=== PATIENT | male | born 1955 | race Caucasian/White ===

== ENCOUNTER 2022-10-14 12:23 | Inpatient (IN) | payer MEDICARE, MEDICAID, SELFPAY ==
[2022-10-14] VITALS (22 sets, daily range): BP systolic 77–141; BP diastolic 46–115; PULSE 46–109; RESP 16–29; TEMP 36.6; O2SAT 89–100; BMI 35.4
--- NOTE | 2022-10-14 12:24 | XRR_ITS ---
PROCEDURE INFORMATION: Exam: XR Chest Exam date and time: 10/14/2022 4:04 PM Age: 66 years old Clinical indication: Pain; Angina pectoris; Additional info: Chest pain TECHNIQUE: Imaging protocol: Radiologic exam of the chest. Views: 1 view. COMPARISON: No relevant prior studies available. FINDINGS: Tubes, catheters and devices: There is a right-sided shunt catheter seen coursing down the right lateral neck, right chest wall and right hemiabdomen. Lungs: The lungs are hypoinflated with elevated right hemidiaphragm and mild right basilar atelectasis or infiltrate. Pleural spaces: Unremarkable. No pleural effusion. No pneumothorax. Heart/Mediastinum: Unremarkable. No cardiomegaly. Bones/joints: Unremarkable. XR/XR chest 1V portable [id number] IMPRESSION: Hypoinflation of the lungs with mild right basilar atelectasis or infiltrate. Correlate for pulmonary infection.
--- NOTE | 2022-10-14 12:25 | ECG_ITS ---
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 Measurements Intervals [place] Rate: 106 P: 55 KS: 197 QRS: 4 QRSD: 126 T: 147 QT: 330 QTc: 440 Interpretive Statements SINUS TACHYCARDIA LATERAL MYOCARDIAL INFARCTION , OF INDETERMINATE AGE [40+ ms Q WAVE AND/OR ST/T ABNORMALITY IN I/aVL/V5/V6] ACUTE [place] Compared to ECG 09/27/2015 12:39:12 Myocardial infarct finding now present Sinus rhythm no longer present Electronically Signed On 10-14-2022 14:40:42 CDT by Danielito Kennedy M.D. [id number]
--- NOTE | 2022-10-14 12:25 | XACV_ITS ---
Ht: 160 cm Wt: 91 kg BSA: 2.05 m2 Gender: Male : 1955 Any Known Allergies: No known allergies Exam Priority: Routine Procedure(s): Procedure Description: Diagnostic procedure Procedure Description: PCI procedure Procedure Description: PTCA Procedure Description: Coronary Thrombectomy Procedure Description: Miscellaneous Procedure Description: ACT Procedure Description: Coronary Angiography Diagnostic Cath Status: Emergency Diagnostic Findings * INDICATION: 66 year old male with past medical history of hypertension, leukemia and CKD presented to urgent care with chest discomfort radiating to both arms. According to patient pain started yesterday almost 24 hours ago. Now very minimal discomfort. EKG shows ST elevations in inferior leads with q waves. * Proximal Left Anterior Descending: total occlusion, MADELINE: 0 flow. Weak collaterals seen from right system. * Left Main: severe 90% stenosis, MADELINE: 3 flow. * Proximal Right Coronary Artery: total occlusion, MADELINE: 0 flow. * Mid Circumflex: subtotal occlusion, MADELINE: 1 flow. * Ramus: obstructive 70% stenosis, MADELINE: 3 flow. * Coronary angiography shows right dominance. PCI Status: Emergency PCI Indication: STEMI - Stable (> 12 hrs Sx) Interventional Findings * PROCEDURE DETAIL: We engaged RCA with JR4 guide catheter. IV heparin was administered to maintain anticoagulation. 0.014 run-through guidewire was used to cross the totally occluded RCA. We predilated RCA with 2.5 x 12 mm semicompliant balloon. Several inflations were performed. Very heavy thrombus burden was noted throughout the vessel. We then proceeded with mechanical thrombectomy with penumbra CAT Rx. Thrombus was removed however flow could not be restored. As patient was chest pain-free by this time and likely inferior wall had already infarcted, we proceeded with medical therapy.. * Proximal Right Coronary Artery: 100% stenosis treated with a AB TREK 2.50X12 RX BALLOON. 0% residual stenosis, MADELINE: 0 flow. Conclusions 1. Total thrombotic occlusion of 2. proximal RCA. S/p unsuccessful revascularization attempt with balloon angioplasty and mechanical thrombectomy. Decision made to medically treat him as patient currently chest pain-free and chest pain symptoms are over 24 hours.. 3. 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 I had a detailed discussion with family. Patient's prognosis is very guarded. They understand this and will inform us shortly for patient to be transferred to tertiary care center. 4. Proximal Right Coronary Artery was treated with a Balloon. Recommendations * Dual antiplatelet therapy with aspirin and plavix. * We will resume heparin gtt after sheath removal. * Transfer to ICU. * Patient's family deciding if want to pursue medical therapy/hospice vs tertiary care transfer. Diagnostic RX Recommendation: PCI w/o planned CABG Anticoagulation: Heparin Pressures Phase:Rest AO : 67 / 54 ( 61 ) @ 2:00:00 PM 70 / 51 ( 61 ) @ 2:10:00 PM Clinical Evaluation EBL: 5mL-10mL Procedural Details Procedure Consent Obtained. Pre-Procedure Time Out. Identified patient by full name and date of as verbalized by the patient/guarantor. Does the consent match the physician's order: N/A Emergent; Informed Consent not obtained due to time critical life threat. Accurate & Complete Informed Consent: N/A Emergent; Informed Consent not obtained due to time critical life threat. Inpatient/Outpatient History & Physical on Chart: N/A Emergent; Informed Consent not obtained due to time critical life threat. If H&P is completed, is and addenduem needed: N/A Emergent; Informed Consent not obtained due to time critical life threat; If yes, is the addendum complete: N/A Emergent; Informed Consent not obtained due to time critical life threat. Visualize and Verify Site with Patient/Guarantor: N/A. Relevant Radiology Images available: N/A. The risks, benefits, and alternatives of sedation and/or procedure were discussed by physician. The patient agrees to continue. Procedure started. [facility] Clinical Fraility Score: 3: Managing Well. Digital Asset Coordinator Indications: ACS <= 24 hours. Chest Pain Symptom Assessment: Typical Angina Symptoms. Cardiovascular Instability: Yes, if yes, Persistant Ischemic Symptoms. Correct patient, site and procedure confirmed by cath team. Current diagnosis: STEMI. PERRLA. Strong, equal hand etiquette teacher bilaterally. Lungs clear x 5 lobes. IV Site on Arrival: 18 gauge in the right anticubital. IV Fluids: 0.9% NaCl at KVO. 0 mL infused prior to manufacturing laborer. Pre Procedural Pulses: bilateral radial was 3+. Oxygen started at 2liters/min via nasal canula. right groin was prepped with chloroprep then draped in the usual sterile fashion. right radial was prepped with chloroprep then draped in the usual sterile fashion. Physician notified. Baseline sample Acquired. HR: 107 BPM. Patient's family unavailable. Equipment: 6F - Radial. Cardiac Cath Pack. ACIST Manifold Kit Model BT 2000. Heparinized Saline (2 units/mL), 1000 mL bag. Physician arrived. Physician scrubbed in. Immediate Pre-Procedure Time Out. Correct Patient: N/A Emergent; Informed Consent not obtained due to time critical life threat; Correct Procedure: N/A Emergent; Informed Consent not obtained due to time critical life threat; Correct Site: N/A Emergent; Informed Consent not obtained due to time critical life threat; Correct Patient Position: N/A Emergent; Informed Consent not obtained due to time critical life threat; Correct Supplies: N/A Emergent; Informed Consent not obtained due to time critical life threat; Dried Flammable Prep: N/A Emergent; Informed Consent not obtained due to time critical life threat; Blood Products Available: N/A Emergent; Informed Consent not obtained due to time critical life threat;. Lidocaine 1% infiltrated to the right radial. Arterial access obtained. 6 tanzanian JR 4 guide catheter was inserted over the exchange J wire. Runthrough guidewire was advanced through the guide catheter to lesion in the prox RCA. PCI Indication : Immediate PCI for STEMI. Inflation number : 1 A AB TREK 2.50X12 RX BALLOON was prepped and advanced across the Prox RCA , then inflated to 10 BRISEIDA for 0:11 seconds. Inflation number: 2 The AB TREK 2.50X12 RX BALLOON was reinflated across the Prox RCA, to 10 BRISEIDA for 0:010 seconds. Balloon out. Penumbra Aspiration catheter in OTW. Aspiration of the RCA performed. Penumbra Aspiration catheter out OTW. Penumbra Aspiration catheter in OTW. Aspiration of the RCA performed. Penumbra Aspiration catheter out OTW. Wire out. Results checked. Guide catheter out over the exchange J wire. A 5 tanzanian TIG catheter in over the exchange J wire. Multiple views taken of left coronary artery. Catheter removed over the exchange J wire. AP pads placed on the patient. ACT drawn. Results 295 seconds. Therapeutic limits - pre-heparin administration 90-150 seconds and monitoring heparin during a vascular procedure >250 seconds. Flushing the sheath with heparinzed saline periodically to maintain patency. Dr. Kennedy scrubbed out to update the family. Dr. Kennedy back. Will stop procedure. A TR Band was successful obtaining hemostatsis at the Right Radial artery insertion site. TR band placed. Hemostasis obtained. Post Procedure: Pulses reassessed and unchanged. PERRLA. Strong, equal hand etiquette teacher bilaterally. No VTE prophylaxis required. Medication's Wasted: Lidocaine 1% = 4 mL. Medication's Wasted: Heparin = 1000 units. Medication's Wasted: Other = Fentanyl 50 mcg. Total IV fluids: 130 mL. Complications: none. Estimated blood loss: 5mL-10mL. Post-op diagnosis: Totally occluded RCA s/p PTCA with mechanical thrombectomy. Unsuccessful revasculartzation. Severe multivesssel CAD. Responsiveness - Normal response to verbal stimuli; alert and oriented, PERRLA. Airway - Unaffected, no intervention required; spontaneous ventilation. Circulation: W/N/L, pulses unchanged. Nausea/Vomiting: No. Procedure completed. Patient transferred by bed to ICU. Vital chart was stopped. Access Site Site: Right Radial artery Sheath Size: 6 Fr Hemostasis Method: TR Band Hemostasis Success: Successful Procedure Medications Start: 12:44 PM Stop: 12:44 PM Medication: Versed Amount: 1 mg Route: I.V. Start: 12:44 PM Stop: 12:44 PM Medication: Fentanyl Amount: 50 mcg Route: I.V. Start: 12:46 PM Stop: 12:46 PM Medication: Heparin Amount: 5000 units Route: I.V. Start: 12:46 PM Stop: 12:46 PM Medication: Versed Amount: 1 mg Route: I.V. I, the attending physician, have reviewed and verified all procedure medications. Yes, all medications given per verbal order History/Risk Factors Hypertension: No Dyslipidemia: No Peripheral Arterial Disease (PAD): No Myocardial Infarction (WA): Yes Obesity: No Renal Disease: No Prior Interventions PCI: No CABG: No Valve Surgery: No Report Signatures Finalized by Danielito Kennedy MD on 10/26/2022 05:55 PM
[2022-10-14] MEDS: heparin 5,000 unit/mL INJ 1 mL 4000 UNIT IVP (12:29)
[2022-10-14] MEDS: clopidogrel 300 mg Tablet 600 MG PO (12:31)
--- NOTE | 2022-10-14 12:31 | PM.HP ---
Providers/Chief Complaint Admitting Physician: Danielito Kennedy MD/ Interventional Cardiology Primary Care Provider: Alonzo Del Real Jr, MD Chief Complaint: STEMI History of Present Illness Hudson Colby is a 66 year old male with past medical history of hypertension, leukemia and CKD presented to urgent care with chest discomfort radiating to both arms. According to patient pain started yesterday almost 24 hours ago. Now very minimal discomfort. EKG shows ST elevations in inferior leads with q waves Review of Systems General: Reports: 10 or more systems reviewed and unremarkable except in HPI and below Const: Denies: fever(s), chills or fatigue ENMT: Denies: throat pain, ear or mastoid pain, nasal congestion or sinus pain Card: Reports: chest pain; Denies: palpitations or swelling of feet/ankles Resp: Reports: dyspnea; Denies: productive cough GI: Reports: nausea; Denies: abdominal pain, vomiting or diarrhea : Denies: flank pain Musc: Denies: back pain or extremity swelling Skin/Breast: Denies: rash Neuro: Denies: headache(s), numbness in extremities or weakness in extremities Medications/Allergies Home Medications Medication Instructions Recorded Confirmed Last Taken Type alprazolam 0.5 mg tablet (Xanax) 0.5 mg PO DAILY 10/14/22 10/14/22 Unknown History ascorbic acid (vitamin C) 1,000 mg 1,000 mg PO Q12H 10/14/22 10/14/22 Unknown History tablet,extended release diltiazem HCl 30 mg tablet 30 mg PO ONCE 10/14/22 10/14/22 Unknown History (Cardizem) duloxetine 30 mg capsule,delayed 60 mg PO DAILY 10/14/22 10/14/22 Unknown History release (Cymbalta) duloxetine 60 mg capsule,delayed 90 mg PO DAILY 10/14/22 10/14/22 Unknown History release (Cymbalta) lisinopril 10 mg tablet 10 mg PO DAILY 10/14/22 10/14/22 Unknown History montelukast 10 mg tablet 10 mg PO DAILY 10/14/22 10/14/22 Unknown History multivitamin (Daily Multi-Vitamin 1 tab PO DAILY 10/14/22 10/14/22 Unknown History tablet) Allergies Allergy/AdvReac Type Severity Reaction Status Date / Time No Known Allergies Allergy Verified 10/14/22 12:32 PFSH Acute PFSH: Medical History Chronic kidney disease CML (chronic myelocytic leukemia) Vitals/I&O/Wt Last Vital Signs Temp 97.8 F 10/14/22 12:28 Pulse 109 H 10/14/22 12:28 Resp 18 10/14/22 12:28 BP 134/93 10/14/22 12:28 Pulse Ox 95 10/14/22 12:28 O2 Del Method Room Air 10/14/22 12:28 Weight last 48 hrs Weight 200 lb Physical Exam Narrative: GENERAL: Patient is alert, awake and oriented x3. [] NECK: No jugular vein distension. [] HEENT: No cyanosis. No icterus. No pallor. [] HEART: Regular S1 and S2. [] LUNGS:Mild crackles. [] CENTRAL NERVOUS SYSTEM: Grossly nonfocal. [] EXTREMITIES: Lower extremities with 1+ edema bilaterally. Data 10/14/22 12:30 10/14/22 12:30 A&P Assessment and plan (1) ST elevation (STEMI) myocardial infarction: (2) CML (chronic myelocytic leukemia): (3) Chronic kidney disease: Plan Patient has presented late with ST elevation SD. Chest pain is very minimal. However, given minimal residual pain, we will proceed with coronary angiogram with possible percutaneous coronary intervention. Patient given aspirin and plavix. We will continue with it. Heparin bolus given We will obtain echocardiogram We will consult medicine team to manage medical issues. Attestations Medical Necessity Statement*: Care expected to cross 2 midnights. Patient has presented late with ST elevation SD. We will perform coronary angiogram with possible percutaneous coronary intervention Coding Level of Care Code Acute Code for [facility] Diagnoses ST elevation (STEMI) myocardial infarction I21.3 CML (chronic myelocytic leukemia) C92.10 Chronic kidney disease N18.9
--- NOTE | 2022-10-14 12:43 | ED_ITS ---
HPI - Chest Pain General: Chief Complaint: Arrhythmia/Palpitations Stated Complaint: STEMI Time Seen by Provider: 10/14/22 12:24 Source: patient Mode of arrival: EMS History of Present Illness: 66-year-old male presented to the urgent care clinic with chest pain is a history of chronic kidney disease and CML which is being monitored. He has no known history of coronary disease chest pain began last night around 6 radiates into his neck he was given aspirin prior to arrival no known history of coronary artery disease no previous cardiac evaluations MD complaint: chest pain Onset (ago): hour(s) Timing of current episode: constant Onset: during rest Pain location: substernal Pain radiation: neck Severity: moderate Quality: aching and heaviness Relieving factors: nothing Exacerbating factors: nothing Associated symptoms: Deny abdominal pain, dyspnea, fever(s), leg edema, nausea, palpitations, sense of impending doom, syncope or vomiting Treatment prior to arrival: aspirin Review of Systems Const: Denies: fever(s) or chills Card: Reports: chest pain; Denies: palpitations, irregular heart rhythm, edema or syncope Resp: Denies: dyspnea GI: Denies: abdominal pain, nausea or vomiting PFS ED PFSH: Medical History (Updated 10/14/22 @ 12:48 by Billy Faulkner DO) Chronic kidney disease CML (chronic myelocytic leukemia) Physical Exam Const: GENERAL APPEARANCE: cooperative and comfortable GALI ENTATION/CONSCIOUSNESS: Yes awake, Yes oriented to person, Yes oriented to place and Yes oriented to time HENMT: COMMON NORMALS: normocephalic, atraumatic and hearing grossly normal bilaterally HEAD & SCALP: normocephalic and atraumatic Resp: COMMON NORMALS: normal respiratory effort, No retractions, No use of accessory muscles and clear to auscultation bilaterally AUSCULTATION: clear to auscultation bilaterally Cardio: COMMON NORMALS: regular rate, regular rhythm and No murmurs present (Cardio) RATE: regular rate RHYTHM: regular rhythm GI: COMMON NORMALS: Soft to palpation and No hepatosplenomegaly present AUSCULTATION: Yes normoactive bowel sounds PALPATION: Yes Soft to palpation, No Tenderness to palpation present (GI), No Guarding due to palpation present (GI) and Yes No hepatosplenomegaly present Extremity: COMMON NORMALS: normal to inspection, capillary refill normal, no clubbing, cyanosis or edema, no calf tenderness and no pedal edema Neuro: SENSORIUM/ORIENTATION: Yes oriented to person, Yes oriented to place and Yes oriented to time Skin: COMMON NORMALS: no rashes or lesions noted GENERAL SKIN EXAM: no rashes or lesions noted Course Vital Signs: Vital signs: Vital Signs Temperature 97.8 F 10/14/22 12:28 Pulse Rate 109 H 10/14/22 12:28 Respiratory Rate 18 10/14/22 12:28 Blood Pressure 134/93 10/14/22 12:28 Pulse Oximetry 95 10/14/22 12:28 Oxygen Delivery Me thod Room Air 10/14/22 12:28 MDM - Chest Pain Medical Decision Making EKG shows ST elevation MO in inferior leads with reciprocal changes. Dr. Reid was present when patient arrived. Patient taken directly to the Special Education Curriculum Specialist he was given aspirin before arrival he was given Plavix and heparin in the emergency room. Medical Records I reviewed the patient's medical records. Lab Data I reviewed the patient's lab results. 10/14/22 12:30 10/14/22 12:30 Discharge Plan Discharge Patient Disposition: Admitted As Inpatient Clinical Impression: ST elevation (STEMI) myocardial infarction Condition: Stable Coding Level of Care Code ED Glassware Finisher for Mario Mejia
[2022-10-14 12:48] LABS: Basophils # 0.1 10^3/uL (0.0-0.1); Basophils % 0.2 %; Eosinophils % 0.1 %; Hematocrit 51.3 % (37-53); Lymphocytes # 7.2 10^3/uL (0.8-4.8); Lymphocytes % 32.2 %; Mean Corpuscular HGB Conc 33.1 g/dL (30-55); Mean Corpuscular Volume 93.6 fl (82-101); Mean Platelet Volume 10.8 fL (7.4-10.4); Monocytes # 1.3 10^3/uL (0.2-0.9); Monocytes % 5.7 %; Neutrophils # 13.74 10^3/uL (1.8-7.7); Neutrophils % 61.3 %; Nucleated Red Blood Cells % 0 %; Platelet Count 205 10^3/cmm (157-399); Red Blood Count 5.48 10^6/uL (3.85-5.65); Red Cell Distribution Width 12.9 % (12.1-15.1); White Blood Count 22.39 10^3/uL (3.29-11.43)
[2022-10-14 13:01] LABS: Troponin(5th) Baseline 2227 ng/L (0-15)
[2022-10-14 13:06] LABS: Alanine Aminotransferase 68 U/L (0-41); Albumin Level 4.7 g/dL (3.5-5.2); Alkaline Phosphatase 111 U/L (40-130); Anion Gap 16.8 (5-19); Aspartate Amino Transferase 254 U/L (0-40); Blood Urea Nitrogen 27 mg/dL (8-23); Calcium 10.1 mg/dL (8.5-10.5); Carbon Dioxide 27 mmol/L (22-29); Chloride 97 mmol/L (98-107); Globulin 2.6 g/dL (1.3-4.6); Glomerular Filtration Rate 35.5 mL/min (90-130); Glucose 275 mg/dL (65-115); NT Pro B Type Natriuretic Pept 2254 pg/mL (0-125); Osmolality Calculated 295 mOsm/kg (285-295); Potassium 5.8 mmol/L (3.5-5.1); Sodium 135 mmol/L (136-145); Total Bilirubin 0.2 mg/dL (0.15-1.2); Total Protein 7.3 g/dL (6.6-8.7)
--- NOTE | 2022-10-14 13:48 | PM.MISC ---
Miscellaneous Note Purpose of Documentation: Brief procedure note Note: Left main artery: Severe 80% stenosis. LAD: Chronic total occlusion LCx: Subtotally occluded in the mid segment RCA: Has total thrombotic occlusion. Given inferior lead ST elevation and totally occluded proximal RCA, we attempted to revascularize RCA. After ballooning,heavy diffuse thrombus burden was observed with very minimal flow. Penumbra mechanical thrombectomy was performed however no significant flow could be restored. As patient was chest pain free and it is late presentation of MA (initial troponin >2200) we decided to medically treat the artery. We then obtained images of the left coronary system. LAD is VACCINATOR, lcx is subtotally occluded with minimal forward flow. Ramus is medium sized vessel with moderate to severe proximal stenosis. Left main artery has severe stenosis. I discussed with patient and family and patient all options available including medical therapy/hospice vs high risk PCI of left main/lcx. I did mention overall prognosis is poor. Chances of cardiac arrest with left main/lcx revascularization attempt were discussed as well. Shared decision made to pursue medical therapy at this time but they will inform us if they decide on transferring to a tertiary care center. Patient is hemodynamically stable and has no chest pain. We will obtain echocardiogram. We will also consult medicine team for treating medical issues. Continue aspirin and plavix. We will resume heparin gtt 2 hours after TR band comes off. Transfer to ICU. If patient and family want, we will transfer him to a tertiary care center.
--- NOTE | 2022-10-14 14:21 | ECG_ITS ---
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 Measurements Intervals [place] Rate: 47 P: 0 W[place]: 0 QRS: 15 QRSD: 107 T: 136 QT: 451 QTc: 399 Interpretive Statements JUNCTIONAL BRADYCARDIA MODERATE T-WAVE ABNORMALITY, CONSIDER LATERAL ISCHEMIA [-0.1+ mV T-WAVE IN I/aVL/V5/V6] Compared to ECG 10/14/2022 12:25:10 T-wave abnormality now present Possible ischemia now present Sinus tachycardia no longer present Myocardial infarct finding no longer present Electronically Signed On 10-14-2022 14:43:39 CDT by Danielito Kennedy M.D. [id number]
--- NOTE | 2022-10-14 14:27 | USCV_ITS ---
Hudson Colby Age: 66 Gender: M : 1955 Exam Date: 10/14/2022 14:36 Ordering Phys: Danielito Kennedy M.D ([email or web address]) Technologist: Mario Menezes Exam Location: [facility] [place] Indication: POST AL BP: 83 / 51 HR: 48 Rhythm: Sinus Technical Quality: Adequate MEASUREMENTS (Male / Female) Normal Values 2D ECHO LVOT Diameter 2.0 cm LV Ejection Fraction MOD 2C 29.0 % LV Ejection Fraction 2C AL 28.2 % LA Diameter 3.1 cm LA Width 2.1 cm LA Height 3.2 cm RA Width 2.8 cm RA Height 3.5 cm Aorta at Sinotubular Diameter 2.2 cm IVC Diameter 1.8 cm M-MODE Aortic Annulus Diameter 3.1 cm LA Ao Ratio MM 1.0 DOPPLER AV Peak Velocity 81.0 cm/s LVOT Peak Velocity 53.0 cm/s AV Area Cont Eq vti 2.2 cm squared AV Area Cont Eq pk 2.1 cm squared MV Peak Velocity 72.0 cm/s MV Area PHT 10.0 cm squared Mitral E to A Ratio 3.3 MV E' Velocity 33.5 cm/s Mitral E to MV E' Ratio 7.8 Mitral E to LV E' Lateral Ratio 8.1 Mitral E to LV E' Septal Ratio 7.6 TR Peak Velocity 207.8 cm/s TR Peak Gradient 17.3 mmHg TR Mean Velocity 158.9 cm/s TR Mean Gradient 11.2 mmHg TR Velocity Time Integral 51.0 cm Right Atrial Pressure 3.0 mmHg Pulmonary Artery Systolic Pressu 20.3 mmHg PV Peak Velocity 75.3 cm/s RV Acceleration Time 0.1 s RV Ejection Time 0.3 s RV AcT/ET 0.2 FINDINGS Left Ventricle Left ventricle is normal in size. LV systolic function is severely reduced with EF of 25-30%. Inferior and inferolateral escobar are akinetic. Moderate global hypokinesis Right Ventricle Severely reduced RV function Right Atrium Normal in size Left Atrium Normal in size Mitral Valve Structurally normal mitral valve. Trace mitral regurgitation Aortic Valve Structurally nromal aortic valve. No significant stenosis or regurgitation. Tricuspid Valve Trace tricuspid regurgitation. Pulmonary artery systolic pressure is normal Pulmonic Valve Not well visualized Pericardium Normal Aorta Normal in size. Atherosclerotic plaque seen IVC Not well visualized CONCLUSIONS LV systolic function severely reduced with EF of 25 to 30%. Above-mentioned regional wall motion abnormalities. Severely reduced RV function Trace mitral regurgitation Trace tricuspid regurgitation Atherosclerotic aortic plaque seen. Danielito Kennedy MD (Electronically Signed) Final Date: 14 October 2022 16:29 S
[2022-10-14] MEDS: perflutren protein-a microsphr 0.22 mg/mL SDV 3 mL IV (15:17)
[2022-10-14 15:29] LABS: Troponin 5 2HR 2659 ng/L (0-15)
[2022-10-14 15:30] LABS: Troponin 5 2HR Delta 432 ABS# (0-10)
--- NOTE | 2022-10-14 15:59 | P.TS_ITS ---
Transfer Summary Providers Date of Admission: 10/14/22 13:33 Date of Discharge/Transfer: 10/14/22 Attending Provider at Admission: Danielito Kennedy M.D Attending Provider at Transfer: Danielito Kennedy M.D Primary Care Provider: Alonzo Del Real Jr, MD Transfer Plans: Anticipated date of transfer: 10/14/22 . Receiving Facility: [facility] . Receiving Provider: Dr Ramon . Diagnoses at Discharge Discharge Diagnosis (1) ST elevation (STEMI) myocardial infarction: Status: Acute (2) CML (chronic myelocytic leukemia): Status: Acute (3) Chronic kidney disease: Status: Acute Reason for Visit Reason for Visit STEMI Brief History: 66-year-old man with past medical history of CML, CKD who presented late after a STEMI. 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 Hospital Course Hospital Course Coronary angiogram demonstrated totally occluded proximal RCA. Ballooning and mechanical thrombectomy revealed very heavy burden of thrombus throughout the vessel. Flow could not be restored. As patient was chest pain-free, hem odynamically stable and initial troponin of over 2200 consistent with late presentation of PA, we decided to medically treat it. Left coronary artery angiogram demonstrated severe left main artery stenosis, DIRECTORY OPERATOR of LAD (receiving some collaterals from RCA early marginal branch), subtotal occlusion of LCx, moderate to severe ramus artery stenosis). In the ICU, patient developed cardiogenic shock with minimal pressor requirement. Echo shows severe LV dysfunction with EF of 25-30%. No LV thrombus. After discussing all possible options with the patient and family, decision made to transfer patient to tertiary care center for possible discussion regarding surgery versus high risk PCI of left main artery versus medical therapy. Physical Exam Narrative: GENERAL: Patient is alert, awake and oriented x3. [] NECK: No jugular vein distension. [] HEENT: No cyanosis. No icterus. No pallor. [] HEART: Regular S1 and S2. [] LUNGS:Mild crackles. [] CENTRAL NERVOUS SYSTEM: Grossly nonfocal. [] EXTREMITIES: Lower extremities with 1+ edema bilaterally. TS Data Studies Completed and Pending Pending at discharge Category Date Time Status SKI LIFT ATTENDANT request for service Stat Exams 10/14/22 12:25 Ordered XR chest 1V portable [id number] Stat Exams 10/14/22 12:24 Ordered Basic Metabolic Panel AM LABS Lab 10/15/22 04:00 Ordered Basic Metabolic Panel AM LABS Lab 10/16/22 04:00 Ordered Basic Metabolic Panel AM LABS Lab 10/17/22 04:00 Ordered Complete Blood Count w/Auto AM LABS Lab 10/15/22 04:00 Ordered Complete Blood Count w/Auto AM LABS Lab 10/16/22 04:00 Ordered Complete Blood Count w/Auto AM LABS Lab 10/17/22 04:00 Ordered Troponin(5th) 6 hour. Timed Lab 10/14/22 18:30 Ordered CV. echo wo/w contrast [id number] Urgent Ultrasound 10/14/22 14:27 Taken Labs from last 24 hours 10/14/22 10/14/22 10/14/22 14:26 12:30 12:30 WBC RBC Hgb Hct MCV MCH MCHC RDW Plt Count MPV Neut % (Auto) Lymph % (Auto) [place] % (Auto) Eos % (Auto) Baso % (Auto) Neut # (Auto) Lymph # (Auto) [place] # (Auto) Eos # (Auto) Baso # (Auto) Nucleated RBC % (auto) Nucleated RBCs # Sodium 135 L Potassium 5.8 H Chloride 97 L Carbon Dioxide 27 Anion Gap 16.8 BUN 27 H Creatinine 1.9 H GFR Calculation 35.5 L Glucose 275 H Calculated Osmolality 295 Calcium 10.1 Total Bilirubin 0.2 AST 254 H ALT 68 H Alkaline Phosphatase 111 Troponin T Baseline 2227 H* Troponin T 120 Minute 2659 H Delta Troponin T 432 H* NT-Pro-B Natriuret Pep 2254 H Total Protein 7.3 Albumin 4.7 Globulin 2.6 10/14/22 12:30 WBC 22.39 H RBC 5.48 Hgb 17.00 H Hct 51.3 MCV 93.6 MCH 31.0 MCHC 33.1 RDW 12.9 Plt Count 205 MPV 10.8 H Neut % (Auto) 61.3 Lymph % (Auto) 32.2 [place] % (Auto) 5.7 Eos % (Auto) 0.1 Baso % (Auto) 0.2 Neut # (Auto) 13.74 H Lymph # (Auto) 7.2 H [place] # (Auto) 1.3 H Eos # (Auto) 0.0 Baso # (Auto) 0.1 Nucleated RBC % (auto) 0 Nucleated RBCs # 0.0 Sodium Potassium Chloride Carbon Dioxide Anion Gap BUN Creatinine GFR Calculation Glucose Calculated Osmolality Calcium Total Bilirubin AST ALT Alkaline Phosphatase Troponin T Baseline Troponin T 120 Minute Delta Troponin T NT-Pro-B Natriuret Pep Total Protein Albumin Globulin Laboratory Last Values WBC 22.39 10^3/uL (3.29-11.43) H 10/14/22 12:30 RBC 5.48 10^6/uL (3.85-5.65) 10/14/22 12:30 Hgb 17.00 g/dL (11.27-16.99) H 10/14/22 12:30 Hct 51.3 % (37-53) 10/14/22 12:30 MCV 93.6 fl (82-101) 10/14/22 12:30 MCH 31.0 pg (27-33) 10/14/22 12:30 MCHC 33.1 g/dL (30-55) 10/14/22 12:30 RDW 12.9 % (12.1-15.1) 10/14/22 12:30 Plt Count 205 10^3/cmm (157-399) 10/14/22 12:30 MPV 10.8 fL (7.4-10.4) H 10/14/22 12:30 Neut % (Auto) 61.3 % 10/14/22 12:30 Lymph % (Auto) 32.2 % 10/14/22 12:30 [place] % (Auto) 5.7 % 10/14/22 12:30 Eos % (Auto) 0.1 % 10/14/22 12:30 Baso % (Auto) 0.2 % 10/14/22 12:30 Neut # (Auto) 13.74 10^3/uL (1.8-7.7) H 10/14/22 12:30 Lymph # (Auto) 7.2 10^3/uL (0.8-4.8) H 10/14/22 12:30 [place] # (Auto) 1.3 10^3/uL (0.2-0.9) H 10/14/22 12:30 Eos # (Auto) 0.0 10^3/uL (0.0-0.8) 10/14/22 12:30 Baso # (Auto) 0.1 10^3/uL (0.0-0.1) 10/14/22 12:30 Nucleated RBC % (auto) 0 % 10/14/22 12:30 Nucleated RBCs # 0.0 /100WBC 10/14/22 12:30 Sodium 135 mmol/L (136-145) L 10/14/22 12:30 Potassium 5.8 mmol/L (3.5-5.1) H 10/14/22 12:30 Chloride 97 mmol/L (98-107) L 10/14/22 12:30 Carbon Dioxide 27 mmol/L (22-29) 10/14/22 12:30 Anion Gap 16.8 (5-19) 10/14/22 12:30 BUN 27 mg/dL (8-23) H 10/14/22 12:30 Creatinine 1.9 mg/dL (0.7-1.2) H 10/14/22 12:30 GFR Calculation 35.5 mL/min (90-130) L 10/14/22 12:30 Glucose 275 mg/dL (65-115) H 10/14/22 12:30 Calculated Osmolality 295 mOsm/kg (285-295) 10/14/22 12:30 Calcium 10.1 mg/dL (8.5-10.5) 10/14/22 12:30 Total Bilirubin 0.2 mg/dL (0.15-1.2) 10/14/22 12:30 AST 254 U/L (0-40) H 10/14/22 12:30 ALT 68 U/L (0-41) H 10/14/22 12:30 Alkaline Phosphatase 111 U/L (40-130) 10/14/22 12:30 Troponin T Baseline 2227 ng/L (0-15) H* 10/14/22 12:30 Troponin T 120 Minute 2659 ng/L (0-15) H 10/14/22 14:26 Delta Troponin T 432 ABS# (0-10) H* 10/14/22 14:26 NT-Pro-B Natriuret Pep 2254 pg/mL (0-125) H 10/14/22 12:30 Total Protein 7.3 g/dL (6.6-8.7) 10/14/22 12:30 Albumin 4.7 g/dL (3.5-5.2) 10/14/22 12:30 Globulin 2.6 g/dL (1.3-4.6) 10/14/22 12:30 Recent Clincial Data Last Vital Signs Temp 97.8 F 10/14/22 12:28 Pulse 49 L 10/14/22 15:39 Resp 20 H 10/14/22 14:30 BP 81/56 10/14/22 14:30 Pulse Ox 96 10/14/22 15:39 O2 Del Method Nasal Cannula 10/14/22 15:39 O2 Flow Rate 2 10/14/22 15:39 Vital Signs Temp Pulse Resp BP Pulse Ox O2 Del Method O2 Del Method 10/14/22 15:39 49 L 96 Nasal Cannula 10/14/22 14:28 46 L 10/14/22 14:30 46 L 20 H 81/56 97 10/14/22 14:25 49 L 17 81/56 89 L 10/14/22 14:20 47 L 23 H 81/56 96 Nasal Cannula 10/14/22 14:15 47 L 17 95/61 95 10/14/22 14:10 47 L 19 H 77/46 96 10/14/22 14:05 50 L 23 H 97 10/14/22 14:00 48 L 29 H 89/57 98 10/14/22 13:55 47 L 16 89/57 98 10/14/22 13:50 50 L 16 89/57 97 10/14/22 13:47 95 10/14/22 12:28 97.8 F 109 H 18 134/93 95 Room Air O2 Flow Rate O2 Flow Rate 10/14/22 15:39 2 10/14/22 14:28 10/14/22 14:30 10/14/22 14:25 10/14/22 14:20 2 10/14/22 14:15 10/14/22 14:10 10/14/22 14:05 10/14/22 14:00 10/14/22 13:55 10/14/22 13:50 10/14/22 13:47 10/14/22 12:28 Intake & Output/Weight 10/12/22 10/13/22 10/14/22 10/15/22 06:59 06:59 06:59 06:59 Weight 200 lb Vitals Last Vital Signs Temp 97.8 F 10/14/22 12:28 Pulse 49 L 10/14/22 15:39 Resp 20 H 10/14/22 14:30 BP 81/56 10/14/22 14:30 Pulse Ox 96 10/14/22 15:39 O2 Del Method Nasal Cannula 10/14/22 15:39 O2 Flow Rate 2 10/14/22 15:39 TS Medications Medications Acetaminophen (Acetaminophen 325 Mg Tablet) 650 mg PO Q6H PRN PRN Reason: MILD PAIN Al Hydrox/Mg Hydrox/Simethicone (Czlf-Bky-Zfrislndf-Cory 30 Ml Udc) 30 ml PO Q15M PRN PRN Reason: INDIGESTION Aspirin (Aspirin 81 Mg Ec Tablet) 81 mg PO DAILY GHAZAL Atorvastatin Calcium (Atorvastatin 40 Mg Tablet) 40 mg PO BEDTIME GHAZAL Atropine Sulfate (Atropine 1 Mg/Ml Sdv 1 Ml) 0.5 mg IVP PRN PRN PRN Reason: Symptomatic bradycardia Clopidogrel Bisulfate (Clopidogrel 75 Mg Tablet) 75 mg PO DAILY GHAZAL Fentanyl (Fentanyl 50 Mcg/Ml Inj 2ml) 50 mcg IVP PRN PRN PRN Reason: Prior to sheath removal Norepinephrine Bitartrate 4 mg (/ Dextrose) 254 mls @ 0 mls/hr IV .Q0M GHAZAL; Protocol Magnesium Hydroxide (Magnesium Hydroxide 30 Ml Udc) 30 ml PO DAILY PRN PRN Reason: CONSTIPATION Naloxone HCl (Naloxone 0.4 Mg/Ml Sdv) 0.1 mg IVP Q2M PRN PRN Reason: RESPIRATORY RATE < 8/MIN Nitroglycerin (Nitroglycerin 0.4 Mg Sublingual Tablet) 0.4 mg SUBLINGUAL Q5M PRN PRN Reason: CHEST PAIN Temazepam (Temazepam 15 Mg Capsule) 15 mg PO BEDTIME PRN PRN Reason: INSOMNIA Discontinued Medications Atropine Sulfate (Atropine 0.1 Mg/Ml Syr 10 Ml) Confirm Administered Dose 1 mg .ROUTE .STK-MED ONE Stop: 10/14/22 12:53 Clopidogrel Bisulfate (Clopidogrel 300 Mg Tablet) 600 mg PO ONCE ONE Stop: 10/14/22 12:25 Last Admin: 10/14/22 12:31 Dose: 600 mg Fentanyl (Fentanyl 50 Mcg/Ml Inj 2ml) Confirm Administered Dose 100 mcg .ROUTE .STK-MED ONE Stop: 10/14/22 12:27 Heparin Sodium (Porcine) (Heparin 5,000 Unit/Ml Inj 1 Ml) 4,000 unit IVP ONCE ONE Stop: 10/14/22 12:25 Last Admin: 10/14/22 12:29 Dose: 4,000 unit Heparin Sodium (Porcine) (Heparin 5,000 Unit/Ml Inj 1 Ml) Confirm Administered Dose 10,000 unit .ROUTE .STK-MED ONE Stop: 10/14/22 12:27 Sodium Chloride (Sodium Chloride 0.9%) 1,000 mls @ 999 mls/hr IV .Q1H1M ONE Stop: 10/14/22 13:24 Last Admin: 10/14/22 14:46 Dose: Not Given Sodium Chloride (Sodium Chloride 0.9%) 500 mls @ 999 mls/hr IV .Q31M ONE Stop: 10/14/22 12:54 Last Admin: 10/14/22 14:47 Dose: Not Given Lidocaine HCl (Xylocaine) Confirm Administered Dose 4 mls @ as directed .ROUTE .STK-MED ONE Stop: 10/14/22 12:28 Sodium Chloride (Sodium Chloride 0.9%) Confirm Administered Dose 1,000 mls @ as directed .ROUTE .[facility]-MED ONE Stop: 10/14/22 12:28 Midazolam HCl (Midazolam 1 Mg/Ml Inj 2 Ml) Confirm Administered Dose 2 mg .ROUTE .STK-MED ONE Stop: 10/14/22 12:27 Nitroglycerin (Nitroglycerin 5 Mg/Ml Sdv 10 Ml) Confirm Administered Dose 50 mg .ROUTE .STK-MED ONE Stop: 10/14/22 12:27 Perflutren Protein Type A Microsphe (Perflutren Protein-A Microsphr 0.22 Mg/Ml Sdv 3 Ml) 0 ml IV ONCE ONE Stop: 10/14/22 15:00 Last Admin: 10/14/22 15:17 Dose: 3 ml Allergies No Known Allergies Allergy (Verified 10/14/22 12:32) Home Medications alprazolam 0.5 mg tablet (Xanax) 0.5 mg PO DAILY 10/14/22 [History Confirmed 10/14/22] ascorbic acid (vitamin C) 1,000 mg tablet,extended release 1,000 mg PO Q12H 10/14/22 [History Confirmed 10/14/22] diltiazem HCl 30 mg tablet (Cardizem) 30 mg PO ONCE 10/14/22 [History Confirmed 10/14/22] duloxetine 30 mg capsule,delayed release (Cymbalta) 60 mg PO DAILY 10/14/22 [History Confirmed 10/14/22] duloxetine 60 mg capsule,delayed release (Cymbalta) 90 mg PO DAILY 10/14/22 [History Confirmed 10/14/22] lisinopril 10 mg tablet 10 mg PO DAILY 10/14/22 [History Confirmed 10/14/22] montelukast 10 mg tablet 10 mg PO DAILY 10/14/22 [History Confirmed 10/14/22] multivitamin (Daily Multi-Vitamin tablet) 1 tab PO DAILY 10/14/22 [History Confirmed 10/14/22] Discharge Plan Discharge Patient Disposition: Home Condition: Stable Prescriptions: No Action montelukast 10 mg tablet 10 mg PO DAILY alprazolam [Xanax] 0.5 mg tablet 0.5 mg PO BEDTIME ascorbic acid (vitamin C) 1,000 mg tablet extended release 1,000 mg PO Q12H multivitamin [Daily Multi-Vitamin] Tablet 1 tab PO DAILY duloxetine [Cymbalta] 30 mg capsule,delayed release(DR/EC) 60 mg PO DAILY duloxetine [Cymbalta] 60 mg capsule,delayed release(DR/EC) 90 mg PO DAILY hydrocodone-acetaminophen 5-325 mg tablet 1 - 2 tab PO Q4H PRN (Reason: Pain) lisinopril 20 mg tablet 20 mg PO DAILY diltiazem HCl 120 mg tablet 120 mg PO DAILY Patient Instructions: Opioid Safety Transfer Attestations Time Spent in Transfer Care: greater than 30 min Quality Metrics Clinical Quality Measures [ Acute Myocardial Infaction { Clinical Trial Participant: No; Contraindication to aspirin: None; Aspirin prescribed; Contraindication to statin: None; Statin prescribed;}] Coding Level of Care Code Acute Code for [facility] Diagnoses ST elevation (STEMI) myocardial infarction I21.3 CML (chronic myelocytic leukemia) C92.10 Chronic kidney disease N18.9
[2022-10-14] MEDS: atropine 0.1 mg/mL Syr 10 mL 0.5 MG IVP (17:00)
[2022-10-14] MEDS: DOPamine drip 400 MG/250 ML PREMIX 17.01 MG IV (17:00)
[2022-10-14] MEDS: etomidate 2 mg/mL INJ SDV 10 mL 20 MG IVP (17:17)
[2022-10-14] MEDS: rocuronium 10 mg/mL INJ 5mL 60 MG IVP (17:18)
[2022-10-14] MEDS: midazolam 1 mg/mL INJ 2 mL 2 MG IVP (17:20)
--- NOTE | 2022-10-14 17:22 | XRR_ITS ---
PROCEDURE INFORMATION: Exam: XR Chest Exam date and time: 10/14/2022 5:34 PM Age: 66 years old Clinical indication: Device placement; Ett placement (vent status); Additional info: Intubation TECHNIQUE: Imaging protocol: Radiologic exam of the chest. Views: 1 view. COMPARISON: CR (CHEST, ) 10/14/2022 4:04 PM FINDINGS: Tubes, catheters and devices: There is a pacer pads overlying the lower central chest. There are also numerous overlapping wires present. There is an endotracheal tube in place with its tip at the level of the clavicles 4.8 cm above the tian. There is a right-sided venous catheter with tip in right atrium. Right-sided shunt catheter tubing is again seen. Lungs: The lungs are hypoinflated with persistent right hemidiaphragm and right basilar atelectasis. Pleural spaces: Unremarkable. No pleural effusion. No pneumothorax. Heart/Mediastinum: Unremarkable. No cardiomegaly. Bones/joints: Unremarkable. XR/XR chest 1V portable [id number] IMPRESSION: 1. Appropriate endotracheal tube placement. Right IJ catheter tip in right atrium. 2. No other changes.
--- NOTE | 2022-10-14 17:44 | XACV_ITS ---
Exam Room: [facility] Ht: 160 cm Wt: 91 kg BSA: 2.05 m2 Gender: Male : 1955 Any Known Allergies: No known allergies Exam Priority: Routine Procedure(s): Procedure Description: Diagnostic procedure Procedure Description: Miscellaneous Procedure Description: Temporary Pacemaker Insertion Procedure Description: pVAD Interventional Findings * INDICATION: In the ICU patient developed cardiogenic shock. Initial plan was for transfer to tertiary care hospital and had been accepted at [facility] in [place]. However because of weather conditions, [facility] not able to transport him. He started becoming bradycardic with heart rate in low 30s. Currently getting external pacing. Blood pressures are very low requiring high dose of levophed. Also on dopamine. Plan for temporary transvenous pacemaker placement and LV. * PROCEDURE DETAIL: We obtained access in right common femoral vein and advanced to cross venous temporary pacemaker. Under fluoroscopic guidance it was put in place and pacing was started. We then obtained access in left common femoral artery and a 6 Kyrgyz sheath was placed. Hand-injection was performed to assess size of the vessel. We then proceeded with placement of Impella under flouroscopic guidance.Good impella output was obtained. Patient left the chemical laboratory chief in a stable condition. . Conclusions 1. Cardiogenic shock s/p successful impella placement and transvenous pacemaker. Recommendations * Transfer to ICU. * Aggressive risk factor modification. Pressures Phase:Rest AO : 104 / 57 ( 68 ) @ 2:14:22 PM 102 / 58 ( 69 ) @ 2:14:22 PM LV : 104 / 9 28 @ 2:14:22 PM Clinical Evaluation EBL: 5mL-10mL Procedural Details Pre-Procedure Time Out. Identified patient by full name and date of as verbalized by the patient/guarantor. Does the consent match the physician's order: N/A Emergent; Informed Consent not obtained due to time critical life threat. Accurate & Complete Informed Consent: N/A Emergent; Informed Consent not obtained due to time critical life threat. Inpatient/Outpatient History & Physical on Chart: Yes. If H&P is completed, is and addenduem needed: N/A Emergent; Informed Consent not obtained due to time critical life threat; If yes, is the addendum complete: N/A Emergent; Informed Consent not obtained due to time critical life threat. The risks, benefits, and alternatives of sedation and/or procedure were discussed by physician. The patient agrees to continue. Procedure started. IV Site on Arrival: 18 gauge in the right anticubital. Right IJ triple lumen catheter on arrival to chemical laboratory chief. On arrival to chemical laboratory chief Versed infusing at 2mg/hr , Levophed at 20mcg/min, Vasopressin 0.04units/min, Dopamine 10mcg/kg/min through triple Lumen IJ catheter. Patient arrived to chemical laboratory chief on a ventilator and will be managed by respiratiory. Settings: VC-AC, Peep 5, FiO2 100%, Rate 16, 23cm at lip. Transcutaneous pacing on arrival to chemical laboratory chief. Rate 70 paced. Physician scrubbed in. Immediate Pre-Procedure Time Out. Correct Patient: N/A Emergent; Informed Consent not obtained due to time critical life threat; Correct Procedure: N/A Emergent; Informed Consent not obtained due to time critical life threat; Correct Site: N/A Emergent; Informed Consent not obtained due to time critical life threat; Correct Patient Position: N/A Emergent; Informed Consent not obtained due to time critical life threat; Correct Supplies: N/A Emergent; Informed Consent not obtained due to time critical life threat; Dried Flammable Prep: N/A Emergent; Informed Consent not obtained due to time critical life threat; Blood Products Available: N/A Emergent; Informed Consent not obtained due to time critical life threat;. Lidocaine 1% infiltrated to the left groin. Arterial access obtained with micropuncture set. Unable to detect NIBP after multiple attempts. Hand injection of contrast through the sheath. Lidocaine 1% infiltrated to the right groin. Venous access obtained with a micropuncture set. Temporary pacer inserted through right 6fr venous sheath. Transcutaneous pacemaker stopped. Temporary pacemaker Rate: 60. Temporary pacemaker MA: 2.5. Left 6fr arterial sheath exchanged over impella wire for 8fr dilator. Dilator out. 10fr dilator in over wire. Dilator out. 12fr dilator in over wire, 12 fr dilator out. 14 fr impella sheath inserted over impella wire. ACT drawn. Results 170 seconds. Therapeutic limits - pre-heparin administration 90-150 seconds and monitoring heparin during a vascular procedure >250 seconds. A 5 mongolian Angled Pig catheter in over wire. EDP Sample taken: LV 104/9,28; HR: 60 BPM; SpO2: 99%. 5Fr Pigtail out over impella wire. Impella CP inserted. Impella CP adequately postioned across the valve with a flow of 3.2L/min. AO measurement on impella 90/79. AO measurement on impella 121/89 mmHg. A Suture was successful obtaining hemostatsis at the Right Femoral vein insertion site. A Suture was successful obtaining hemostatsis at the Left Femoral artery insertion site. Total IV fluids: 20 mL. Post-op diagnosis: Cardiogenic Shock, Severe Bradycardia S/P Impella and TPM insertion. Complications: None. Estimated blood loss: 5mL-10mL. Airway - Unaffected, remains intubated. Same ET tube placement and settings. Nausea/Vomiting: No. No VTE prophylaxis required. Admit Source: In Patient. Procedure completed. Patient transferred by bed to ICU. Vital chart was stopped. Access Site Site: Left Femoral artery Sheath Size: 6 Fr Hemostasis Method: Suture Hemostasis Success: Successful Site: Right Femoral vein Sheath Size: 6 Fr Hemostasis Method: Suture Hemostasis Success: Successful Procedure Medications Start: 6:28 PM Stop: 6:28 PM Medication: Heparin Amount: 5000 units Route: I.V. Start: 6:35 PM Stop: 6:35 PM Medication: Heparin Amount: 5000 units Route: I.V. I, the attending physician, have reviewed and verified all procedure medications. Yes, all medications given per verbal order History/Risk Factors Hypertension: No Dyslipidemia: No Peripheral Arterial Disease (PAD): No Myocardial Infarction (GA): Yes Obesity: No Renal Disease: No Prior Interventions PCI: No CABG: No Valve Surgery: No Report Signatures Finalized by Danielito Kennedy MD on 10/26/2022 06:25 PM
--- NOTE | 2022-10-14 17:55 | W.PM.OPSUD ---
Surgery/Procedure H&P Update DATE OF PROCEDURE: October 14, 2022 DATE H&P PERFORMED: 10/14/22 H&P UPDATE INFORMATION: I have reviewed H&P completed within last 30 days and Changes to prior documentation as noted here CHANGES TO PREVIOUS DOCUMENTATION: In the ICU patient developed cardiogenic shock. Initial plan was for transfer to counts include [facility] beds at the [facility] and had been accepted at [facility] in [place]. However because of weather conditions, [facility] not able to transport him. He started becoming bradycardic with heart rate in low 30s. Currently getting external pacing. Blood pressures are very low requiring high dose of levophed. Also on dopamine. Plan for temporary transvenous pacemaker placement and LV support device PREOP DIAGNOSIS: Cardiogenic shock/ Bradycardia PRIMARY INDICATION FOR PROCEDURE: Temporary transvenous pacemaker placement/ Intra-aortic balloon pump placement/ Impella insertion PLANNED PROCEDURE: Temporary transvenous pacemaker placement/ Intra-aortic balloon pump placement/ Impella insertion Patient is intubated and sedated PATIENT REASSESSED PRIOR TO SEDATION, WITH NO CHANGE NOTED: Yes
--- NOTE | 2022-10-14 17:58 | PM.CONSULT ---
Providers/Reason For Consult Consulting Physician/Specialty*: Joya Brantley MD/ Hospitalist Reason for Consult*: medical management / CCM Requesting Physician: Danielito Kennedy MD Attending Physician: Danielito Kennedy M.D Primary Care Provider: Alonzo Del Real Jr, MD History of Present Illness History of Present Illness Hudson Colby is a 66 year old male who was admitted today for a STEMI and taken to [facility] emergently by cardiology. Coronary angiogram demonstrated totally occluded proximal RCA.? Ballooning and mechanical thrombectomy revealed very heavy burden of thrombus throughout the vessel.? Flow could not be restored.? As patient was chest pain-free, hemodynamically stable and initial troponin of over 2200 consistent with late presentation of IA, it was decided to medically treat it.? Left coronary artery angiogram demonstrated severe left main artery stenosis, DIRECTOR OF OPTIMIZATION of LAD (receiving some collaterals from RCA early marginal branch), subtotal occlusion of LCx, moderate to severe ramus artery stenosis). . Echo shows severe LV dysfunction with EF of 25-30%. No LV thrombus. After discussing all possible options with the patient and family, decision made to transfer patient to tertiary care center for possible discussion regarding surgery versus high risk PCI of left main artery versus medical therapy. After being brought out of the ICU initially in a stable condition, patient thereafter developed cardiogenic shock and needed to be started on Levophed. From here on he continued to clinically deteriorate eventually developing bradycardia, hypotension which required starting additional pressors to Levophed including dopamine and vasopressin. Central line was placed by ER physician KECIA. He was intubated and sedated, started on fentanyl and Versed and is being taken back into the [facility] right now for placement of a temporary pacemaker and possibly Impella. Overall prognosis is guarded. Medicine team consulted to assist with management of medical comorbidities and critical care management. Per history it appears patient had developed chest pain over the last 24 hours which was radiating into his jaw Review of Systems General: Reports: ROS unobtainable due to medical condition Medications/Allergies Home Medications Medication Instructions Recorded Confirmed Last Taken Type alprazolam 0.5 mg tablet (Xanax) 0.5 mg PO BEDTIME 10/14/22 10/14/22 10/13/22 History ascorbic acid (vitamin C) 1,000 mg 1,000 mg PO Q12H 0810/14/22 10/13/22 History tablet,extended release diltiazem HCl 120 mg tablet 120 mg PO DAILY 10/14/22 10/14/22 10/13/22 History duloxetine 30 mg capsule,delayed 60 mg PO DAILY 10/14/22 10/14/22 10/13/22 History release (Cymbalta) duloxetine 60 mg capsule,delayed 90 mg PO DAILY 10/14/22 10/14/22 10/13/22 History release (Cymbalta) hydrocodone 5 mg-acetaminophen 325 1 - 2 tab PO Q4H PRN Pain 10/14/22 10/14/22 10/13/22 History mg tablet lisinopril 20 mg tablet 20 mg PO DAILY 10/14/22 10/14/22 10/13/22 History montelukast 10 mg tablet 10 mg PO DAILY 10/14/22 10/14/22 10/13/22 History multivitamin (Daily Multi-Vitamin 1 tab PO DAILY 10/14/22 10/14/22 10/13/22 History tablet) Allergies Allergy/AdvReac Type Severity Reaction Status Date / Time No Known Allergies Allergy Verified 10/14/22 12:32 Current Medications Generic Name Dose Route Start Last Admin Trade Name Freq PRN Reason Stop Dose Admin Norepinephrine Bitartrate 4 mg 254 mls @ 0 mls/hr 10/14/22 15:15 10/14/22 16:15 / Dextrose IV 2 mcg/min .Q0M GHAZAL 7.62 mls/hr Administration Protocol Per Protocol Vasopressin 100 unit/ Sodium 100 mls @ 0 mls/hr 10/14/22 17:15 10/14/22 17:41 Chloride IV 0.01 unit/min .Q0M GHAZAL 0.6 mls/hr Administration Protocol Per Protocol Midazolam HCl 100 mg/ Sodium 100 mls @ 0 mls/hr 10/14/22 17:30 10/14/22 17:33 Chloride IV 2 mg/hr .Q0M GHAZAL 2 mls/hr Administration Protocol Per Protocol Dopamine HCl/Dextrose 400 mg in 250 mls @ 17.01 mls/hr 10/14/22 17:45 10/14/22 17:00 Intropin Drip IV 5 mcg/kg/min CONT GHAZAL 17.01 mls/hr Administration Protocol 5 MCG/KG/MIN PFSH Acute PFSH: Medical History Chronic kidney disease CML (chronic myelocytic leukemia) Vitals/I&O/Wt Last Vital Signs Temp 97.8 F 10/14/22 12:28 Pulse 49 L 10/14/22 15:39 Resp 20 H 10/14/22 14:30 BP 81/56 10/14/22 14:30 Pulse Ox 96 10/14/22 15:39 O2 Del Method Nasal Cannula 10/14/22 15:39 O2 Flow Rate 2 10/14/22 15:39 Weight last 48 hrs Weight 90.718 kg Physical Exam Narrative: General: Patient is being intubated and being prepared for taken back to the [facility]. When becoming bradycardic he became lethargic, had nausea, was retching. Unable to be examined in detail as getting central line and getting intubated. Data 10/14/22 12:30 10/14/22 12:30 A&P Assessment and plan (1) ST elevation (STEMI) myocardial infarction: (2) Cardiogenic shock: (3) Bradycardia: Plan Patient presenting today with events as noted above in HPI. Currently with delayed presentation of STEMI, resulting bradycardia and cardiogenic shock. Currently on 3 pressors including Levophed, dopamine and vasopressin. Currently intubated and sedated with fentanyl and Versed. From labs at 12:30 PM, he had hyperkalemia with potassium of 5.8. We will repeat stat CMP. Will obtain additional CBC and mag stat. He is being taken to the [facility] again for bradycardia, placement of temporary pacer and possibly Impella. Chest x-ray shows appropriate endotracheal tube placement. Empiric antibiotic coverage with piperacillin/tazobactam given given elevated white blood cell count. Transaminitis, AST ALT elevated at 254 and 68 respectively. Alkaline phosphatase normal. Suspect shock liver. Right upper quadrant ultrasound once stabilized from a cardiac perspective. ANIA with creatinine of 1.9. Trending back to 2016 creatinine was as high as 6.9, no interim labs to know a more recent baseline. May be ANIA. Currently receiving 1 L fluid bolus after being intubated. Watch closely for development of pulmonary edema. Medicine team remains available to assist with critical care management once patient is returned to the ICU. Consult Attestations Medical Necessity Statement: See admitting note. Coding Level of Care Code Acute Code for g Fwd Diagnoses ST elevation (STEMI) myocardial infarction I21.3 Cardiogenic shock R57.0 Bradycardia R00.1
--- NOTE | 2022-10-14 19:08 | P.MISC_ITS ---
Miscellaneous Note Purpose of Documentation: Brief procedure note Note: Patient had developed junctional bradycardia with heart rate in low 30s, hypotension and cardiogenic shock. laboratory equipment cleaner was activated. Patient underwent placement of temporary pacemaker and impella insertion. We will transfer him to tertiary care center.
[2022-10-14 19:58] LABS: Basophils # 0.1 10^3/uL (0.0-0.1); Basophils % 0.2 %; Hematocrit 45.4 % (37-53); Lymphocytes # 10.9 10^3/uL (0.8-4.8); Lymphocytes % 31.9 %; Mean Corpuscular HGB Conc 32.6 g/dL (30-55); Mean Corpuscular Hemoglobin 31.3 pg (27-33); Mean Platelet Volume 11.2 fL (7.4-10.4); Monocytes % 5.9 %; Neutrophils # 20.86 10^3/uL (1.8-7.7); Neutrophils % 60.8 %; Nucleated Red Blood Cells % 0 %; Platelet Count 212 10^3/cmm (157-399); Red Blood Count 4.73 10^6/uL (3.85-5.65); Red Cell Distribution Width 13.2 % (12.1-15.1)
[2022-10-14 20:35] LABS: Troponin 5 6HR 3707 ng/L (0-15); Troponin 5 6HR Delta 1480 ng/L (0-12)
[2022-10-14 20:36] LABS: Lactate (Lactic Acid level) 4.5 mmol/L (0.5-2.2)
[2022-10-14 21:04] LABS: Slide Review Slide Review Perform
[2022-10-14 21:10] LABS: White Blood Count 34.27 10^3/uL (3.29-11.43)
--- NOTE | 2022-10-14 21:10 | PC.NURSE ---
Addendum entered by Tanya Jackson RN 10/14/22 22:59: Upon return from radiographer cardiac catheterization, patient's extremities cool, pale, mottled and pedal and tibial pulses unable to be palpated or doppled. Dr. Kennedy on unit and aware. At 2039, pulses still unable to be doppled; Dr. Kennedy updated on new findings as well as being unable to still dopple distal pulses. Original Note: Physician Communication/Transfer Patient returned from radiographer cardiac catheterization at around 0. Dr. Kennedy on unit; order received for hernández catheter insertion and informed of cool extremities. Impella insertion site dry and intact with dressing, transvenous pacer site dry and intact with dressing, all vitals stable, no hematomas noted. TR band remaining on right wrist. 2 ml of air removed at 1944, 2009, 2029, and 2044 with no bleeding or hematoma noted. At around 2039, no pedal pulses or posterior tibial pulses able to be palpated or doppled, hematuria found in patient's urine output and left groin site noted to be oozing blood. Dr. Kennedy notified of findings and no new orders received. EMS on unit to transfer patient to [facility]. BETZY Bateman going to ride with patient on ambulance to receiving facility to facilitate patient care. TR band syringe with BETZY Bateman upon transfer. Alisson Ovalles RN at [facility] updated on patient status as well as location at 2102. Family updated on patient transfer as well as patient status. All patient belongings sent with prior to transfer. Patient left unit at 2104; all vital signs stable.
--- NOTE | 2022-10-16 08:29 | W.ED.ARRPALP ---
HPI - Arrhythmia/Palpitations General: Chief Complaint: Arrhythmia/Palpitations Stated Complaint: STEMI Time Seen by Provider: 10/14/22 12:24 History of Present Illness: I was called to the ICU for this patient who was admitted earlier as a STEMI. Dr. Brantley and Dr. Reid were requesting a central line placement and intubation. [facility] ED PFSH: Medical History Chronic kidney disease CML (chronic myelocytic leukemia) Procedures Central Line Placement Right IJ: Time Out Performed: Yes Patient Placed on Monitor/Pulse Ox: Yes Prep: mask, gown and gloves Central Line Prep: Chlorhexidine scrub Local Anesthetic: lidocaine 1% Amount of anesthesia used (mL): 5 Ultrasound Used for Placement: Yes Central Line Lumen Inserted: triple Post Procedure: sutured in place, good blood return, all ports aspirated, flushed, capped and sterile dressing applied Post Procedure X-Ray: tip of catheter in good position and no pneumothorax seen Patient Tolerated Procedure: well Complications: none Additional Comments: Chest x-ray confirmed placement of central line Intubation Time out performed: Yes sedative: Etomidate Mg Given: 20 paralytic: Rocuronium Mg Given: 60 Laryngoscope: fiber optic video scope Assist Device Used: fiber optic device ET Tube Size: 8.5 ET Tube Uncuffed: No Tube Secured Depth (cm): 22 Tube Secured Location: teeth Tube Placement Confirmation: visualized tube passing through cords, equal breath sounds bilaterally, no breath sounds over epigastrium and confirmation by capnometry Patient Tolerated Procedure: well Intubation Complications: none Additional Comments: ET tube placement confirmed by chest x-ray Course Vital Signs: Vital signs: Vital Signs Temperature 97.8 F 10/14/22 12:28 Pulse Rate 65 10/14/22 20:30 Respiratory Rate 16 10/14/22 19:40 Blood Pressure 137/112 10/14/22 20:45 Pulse Oximetry 100 10/14/22 20:45 Oxygen Delivery Me thod Mechanical Ventil ation 10/14/22 20:15 Oxygen Flow Rate 2 10/14/22 15:39 Fraction of Inspir ed Oxygen 100 10/14/22 20:15 MDM - Arrhythmia/Palpitations Medical Decision Making Central line placement followed by intubation without any complications. Dr. Brantley and Dr. Kennedy continuing to manage the patient. Lab Data 10/14/22 19:36 10/14/22 12:30 Radiology Impressions Chest X-Ray 10/14/22 17:22 IMPRESSION: 1. Appropriate endotracheal tube placement. Right IJ catheter tip in right atrium. 2. No other changes. Laboratory Results WBC 22.39 10^3/uL (3.29-11.43) H 10/14/22 12:30 RBC 5.48 10^6/uL (3.85-5.65) 10/14/22 12:30 Hgb 17.00 g/dL (11.27-16.99) H 10/14/22 12:30 Hct 51.3 % (37-53) 10/14/22 12:30 MCV 93.6 fl (82-101) 10/14/22 12:30 MCH 31.0 pg (27-33) 10/14/22 12:30 MCHC 33.1 g/dL (30-55) 10/14/22 12:30 RDW 12.9 % (12.1-15.1) 10/14/22 12:30 Plt Count 205 10^3/cmm (157-399) 10/14/22 12:30 MPV 10.8 fL (7.4-10.4) H 10/14/22 12:30 Neut % (Auto) 61.3 % 10/14/22 12:30 Lymph % (Auto) 32.2 % 10/14/22 12:30 [place] % (Auto) 5.7 % 10/14/22 12:30 Eos % (Auto) 0.1 % 10/14/22 12:30 Baso % (Auto) 0.2 % 10/14/22 12:30 Neut # (Auto) 13.74 10^3/uL (1.8-7.7) H 10/14/22 12:30 Lymph # (Auto) 7.2 10^3/uL (0.8-4.8) H 10/14/22 12:30 [place] # (Auto) 1.3 10^3/uL (0.2-0.9) H 10/14/22 12:30 Eos # (Auto) 0.0 10^3/uL (0.0-0.8) 10/14/22 12:30 Baso # (Auto) 0.1 10^3/uL (0.0-0.1) 10/14/22 12:30 Nucleated RBC % (auto) 0 % 10/14/22 12:30 Nucleated RBCs # 0.0 /100WBC 10/14/22 12:30 Sodium 135 mmol/L (136-145) L 10/14/22 12:30 Potassium 5.8 mmol/L (3.5-5.1) H 10/14/22 12:30 Chloride 97 mmol/L (98-107) L 10/14/22 12:30 Carbon Dioxide 27 mmol/L (22-29) 10/14/22 12:30 Anion Gap 16.8 (5-19) 10/14/22 12:30 BUN 27 mg/dL (8-23) H 10/14/22 12:30 Creatinine 1.9 mg/dL (0.7-1.2) H 10/14/22 12:30 GFR Calculation 35.5 mL/min (90-130) L 10/14/22 12:30 Glucose 275 mg/dL (65-115) H 10/14/22 12:30 Calculated Osmolality 295 mOsm/kg (285-295) 10/14/22 12:30 Calcium 10.1 mg/dL (8.5-10.5) 10/14/22 12:30 Total Bilirubin 0.2 mg/dL (0.15-1.2) 10/14/22 12:30 AST 254 U/L (0-40) H 10/14/22 12:30 ALT 68 U/L (0-41) H 10/14/22 12:30 Alkaline Phosphatase 111 U/L (40-130) 10/14/22 12:30 Troponin T Baseline 2227 ng/L (0-15) H* 10/14/22 12:30 NT-Pro-B Natriuret Pep 2254 pg/mL (0-125) H 10/14/22 12:30 Total Protein 7.3 g/dL (6.6-8.7) 10/14/22 12:30 Albumin 4.7 g/dL (3.5-5.2) 10/14/22 12:30 Globulin 2.6 g/dL (1.3-4.6) 10/14/22 12:30 Discharge Plan Discharge Patient Disposition: Admitted As Inpatient Admit Provider: Danielito Kennedy Clinical Impression: ST elevation (STEMI) myocardial infarction, Respiratory failure, acute, Difficult intravenous access Condition: Stable Coding Level of Care Code ED Seam Press Operator for Mario Mejia
== END 2022-10-14 21:05 | disposition expired | DRG 215 ==
LOC: ER 12:36 → CCL 12:36 → ICU 13:53
PROVIDERS: Student in an Organized Health Care Education/Training Program; Admitting Provider Internal Medicine; Emergency Provider Family Medicine; Family Provider Family Medicine; PCP Family Medicine; Visit Provider Internal Medicine
PROC: 02HA3RZ Insertion of Short-term External Heart Assist System into Heart, Percutaneous Approach (ICD-10-PCS; principal; 2022-10-14 12:30)
PROC: 02HA3RZ Insertion of Short-term External Heart Assist System into Heart, Percutaneous Approach (ICD-10-PCS; 2022-10-14 12:30)
DX: I21.11 ST elevation (STEMI) myocardial infarction involving right coronary artery (principal); I13.0 Hypertensive heart and chronic kidney disease with heart failure and stage 1 through stage 4 chronic kidney disease, or unspecified chronic kidney disease; I50.20 Unspecified systolic (congestive) heart failure; C92.10 Chronic myeloid leukemia, BCR/ABL-positive, not having achieved remission; I25.82 Chronic total occlusion of coronary artery; R57.0 Cardiogenic shock; I25.10 Atherosclerotic heart disease of native coronary artery without angina pectoris; N18.9 Chronic kidney disease, unspecified; R00.1 Bradycardia, unspecified; I95.9 Hypotension, unspecified
CPT/HCPCS: 33210; 33975; 36415; 51702; 71045; 80053; 83605; 83880; 84484; 85025; 85347; 92920; 92973; 93005; 93454; 94002; 96361; 96365; 96367; 96374; 96376; 99152; 99153; 99285; A4570; C1725; C1751; C1757; C1769; C1779; C1887; C1894; C8929; J0461; J1265; J1644; J2250; J3010; J3490; J7030; J7060; Q9956; Q9967